=== PATIENT | male | born 1955 | race Caucasian/White ===

== ENCOUNTER 2022-10-14 18:37 | Observation (INO) | payer OTHER ==
[~2022-10-14] VITALS: Ht 177.8 cm; Wt 136.0 kg
[~2022-10-14 18:37] MED LIST: ASPI-325 PO; ATOR20TA50 PO; AZIT250T8 PO; CLOP75TA70 PO; HYDR-4902 PO
[2022-10-14] MEDS ORDERED: FUROSEMIDE 40 MG/4 ML VIAL IV ONE (19:15)
[2022-10-14 19:21] LABS: Basophils # (auto) 0.1 10 ^3/uL (0-0.2); Basophils % (auto) 0.5 % (0.0-2.0); Eosinophils # (auto) 0.4 10 ^3/uL (0-0.8); Eosinophils % (auto) 2.8 % (0.0-7.0); Hematocrit 38.8 % (41.0-53.0); Hemoglobin 13.4 g/dL (13.5-17.5); Lymphocytes # (auto) 2.7 10 ^3/uL (0.4-5.4); Lymphocytes % (auto) 20.9 % (10.0-50.0); Mean Corpuscular Hemoglobin 32.9 pg (28.0-32.0); Mean Corpuscular Hgb Conc. 34.6 g/dL (32.0-36.0); Mean Corpuscular Volume 95.2 fL (80.0-100.0); Monocytes # (auto) 1.1 10 ^3/uL (0-1.3); Monocytes % (auto) 8.9 % (0.0-12.0); Neutrophils # (auto) 8.5 10 ^3/uL (1.6-8.6); Neutrophils % (auto) 66.9 % (37.0-80.0); Nucleated Red Blood Cells % 0.1 %; Red Blood Cells 4.08 10^6/uL (4.5-5.90); Red Cell Distribution Width 13.6 % (11.8-14.3); White Blood Cell 12.7 10^3/uL (4.4-10.8)
[2022-10-14 19:55] LABS: Albumin 3.4 g/dL (3.4-5.0); Calcium 9.7 mg/dL (8.5-10.1); Potassium 3.6 mmol/L (3.5-5.1)
[2022-10-14 20:01] LABS: BUN/Creatinine Ratio 12.9 (10.0-20.0); Bilirubin, Total 0.5 mg/dL (0.2-1.0)
[2022-10-14] MEDS ORDERED: HYDROcodone-ACET 10/325MG TAB PO ONE (20:15)
[2022-10-14] MEDS ORDERED: NITROGLYCERIN 0.4 MG SL TAB SL ONE ×2 (20:41→20:45)
[2022-10-14 20:45] LABS: INR 0.95 (0.9-1.15); Partial Thromboplastin Time 30.2 sec (24.6-33.4)
[2022-10-14] MEDS ORDERED: NITROGLYCERIN 0.4 MG SL TAB SL PRN (21:30)
[2022-10-14 21:38] LABS: Urine Bacteria NONE SEEN /hpf (None Seen); Urine Blood Negative /uL (Negative); Urine Specific Gravity 1.011 (1.001-1.035); Urine WBC <1 /hpf (0 - 3)
[2022-10-15] MEDS ORDERED: NITROGLYCERIN 0.4 MG SL TAB SL PRN
[2022-10-15] MEDS ORDERED: MORPHINE SULFATE INJ 2 MG/ml SYRG IV PRN
[2022-10-15] MEDS ORDERED: DEXTROSE (50%) 50ML SYRG IV PRN
[2022-10-15] MEDS: HYDROcodone-ACET 10/325MG TAB PO PRN ×2 (00:12→05:15)
[2022-10-15] MEDS ORDERED: FUROSEMIDE 40 MG/4 ML VIAL IV SCH (06:00)
[2022-10-15 06:34] LABS: Albumin 3.2 g/dL (3.4-5.0); Calcium 9.9 mg/dL (8.5-10.1); Potassium 3.8 mmol/L (3.5-5.1)
[2022-10-15 06:37] LABS: Bilirubin, Total 0.6 mg/dL (0.2-1.0); Total Protein 7.1 g/dL (6.4-8.2)
[2022-10-15] MEDS ORDERED: ACCU-CHEK COMFORT CURVE STRIP VI SCH (07:00)
[2022-10-15] MEDS ORDERED: InsuLIN REG 1unit/0.01ml Soln (100units/ml) SC SCH ×2 (07:00→22:00)
[2022-10-15 08:01] VITALS: BP 124/69
== END 2022-10-15 09:58 | disposition home or self-care (01) ==
LOC: ER 18:37 → EDBD 18:37 → TELE 23:57 → INTOOBSV 23:57
PROVIDERS: ADMIT Internal Medicine; ATTEND Internal Medicine
DX: R07.89 Other chest pain (principal); I13.0 Hypertensive heart and chronic kidney disease with heart failure and stage 1 through stage 4 chronic kidney disease, or unspecified chronic kidney disease; I50.9 Heart failure, unspecified; N18.9 Chronic kidney disease, unspecified; E11.22 Type 2 diabetes mellitus with diabetic chronic kidney disease; I25.10 Atherosclerotic heart disease of native coronary artery without angina pectoris; E66.01 Morbid (severe) obesity due to excess calories; E78.5 Hyperlipidemia, unspecified; I24.9 Acute ischemic heart disease, unspecified; I25.2 Old myocardial infarction; N17.9 Acute kidney failure, unspecified; F17.210 Nicotine dependence, cigarettes, uncomplicated; J44.9 Chronic obstructive pulmonary disease, unspecified; Z79.84 Long term (current) use of oral hypoglycemic drugs; Z86.73 Personal history of transient ischemic attack (TIA), and cerebral infarction without residual deficits; Z95.5 Presence of coronary angioplasty implant and graft; Z79.82 Long term (current) use of aspirin; Z68.41 Body mass index [BMI] 40.0-44.9, adult
CPT/HCPCS: 36415; 71045; 76705; 80053; 81001; 83735; 83880; 84484; 85025; 85610; 85730; 93005; 93971; 96374; 96376; 99285; G0378; J1940

== ENCOUNTER 2022-12-26 22:25 | Emergency (ER) | payer OTHER ==
[~2022-12-26] VITALS: Ht 170.2 cm; Wt 136.4 kg
[~2022-12-26 22:25] MED LIST changes: +AZIT-81 PO; -AZIT250T8 PO
[2022-12-27] MEDS ORDERED: LACTULOSE 20Gm/30ML SOLN PO ONE (00:15)
[2022-12-27] MEDS ORDERED: FLEET ENEMA(ADULT) 135 ML PR ONE ×2 (00:15→01:30)
[2022-12-27 00:50] LABS: Basophils # (auto) 0.1 10 ^3/uL (0-0.2); Basophils % (auto) 0.8 % (0.0-2.0); Eosinophils # (auto) 0.3 10 ^3/uL (0-0.8); Eosinophils % (auto) 2.3 % (0.0-7.0); Hemoglobin 14.9 g/dL (13.5-17.5); Lymphocytes # (auto) 3.7 10 ^3/uL (0.4-5.4); Lymphocytes % (auto) 27.9 % (10.0-50.0); Mean Corpuscular Hemoglobin 32.2 pg (28.0-32.0); Mean Corpuscular Hgb Conc. 34.6 g/dL (32.0-36.0); Monocytes # (auto) 1.5 10 ^3/uL (0-1.3); Monocytes % (auto) 11.5 % (0.0-12.0); Neutrophils # (auto) 7.6 10 ^3/uL (1.6-8.6); Neutrophils % (auto) 57.5 % (37.0-80.0); Red Blood Cells 4.63 10^6/uL (4.5-5.90); Red Cell Distribution Width 13.4 % (11.8-14.3); White Blood Cell 13.2 10^3/uL (4.4-10.8)
[2022-12-27 00:57] LABS: Albumin 3.7 g/dL (3.4-5.0); BUN/Creatinine Ratio 15.7 (10.0-20.0); Calcium 9.7 mg/dL (8.5-10.1)
[2022-12-27 01:00] LABS: Bilirubin, Total 0.3 mg/dL (0.2-1.0); Total Protein 8.1 g/dL (6.4-8.2)
[2022-12-27 01:24] LABS: Potassium 2.8 mmol/L (3.5-5.1)
[2022-12-27] MEDS ORDERED: POTASSIUM EFFERVESENT TAB 25 MEQ PO ONE ×2 (02:15→10:00)
[2022-12-27] MEDS ORDERED: SODIUM CHLORIDE 0.9% 1,000 ML IV ONE ×2 (02:15→02:45)
[2022-12-27] MEDS ORDERED: DOCU-94 PO (02:27)
[2022-12-27] MEDS ORDERED: LACT10SO3 PO (02:27)
[2022-12-27] MEDS: POTASSIUM CHL 20MEQ/100ML 100 ML IV SCH ×2 (05:03→06:58)
[2022-12-27 05:10] VITALS: PULSE 68; RESP 22; O2SAT 93
[2022-12-27 07:13] LABS: Albumin 3.5 g/dL (3.4-5.0); Calcium 9.4 mg/dL (8.5-10.1)
[2022-12-27 07:17] LABS: BUN/Creatinine Ratio 15.2 (10.0-20.0); Bilirubin, Total 0.5 mg/dL (0.2-1.0); Total Protein 8.2 g/dL (6.4-8.2)
[2022-12-27 09:25] VITALS: PULSE 70; RESP 20; O2SAT 95
[2022-12-27 10:10] VITALS: BP 141/74; PULSE 72; RESP 16; TEMP 97.8; O2SAT 97
== END 2022-12-27 10:53 | disposition home or self-care (01) ==
LOC: ER 22:25
DX: K59.00 Constipation, unspecified (principal); E87.6 Hypokalemia; D72.829 Elevated white blood cell count, unspecified; F17.210 Nicotine dependence, cigarettes, uncomplicated; I11.0 Hypertensive heart disease with heart failure; I50.9 Heart failure, unspecified; J44.9 Chronic obstructive pulmonary disease, unspecified; E78.5 Hyperlipidemia, unspecified; I25.2 Old myocardial infarction; E66.01 Morbid (severe) obesity due to excess calories; Z86.73 Personal history of transient ischemic attack (TIA), and cerebral infarction without residual deficits; Z68.41 Body mass index [BMI] 40.0-44.9, adult
CPT/HCPCS: 36415; 74176; 80053; 83690; 85025; 96361; 96365; 96366; 99285; J3480; J7030

== ENCOUNTER 2023-08-25 04:16 | Emergency (ER) | payer OTHER ==
[~2023-08-25] VITALS: Ht 170.2 cm; Wt 132.7 kg
[~2023-08-25 04:16] MED LIST changes: +AZIT-185 PO; -AZIT-81 PO; +DOCU-94 PO; +LACT10SO3 PO
[2023-08-25 04:25] VITALS: BP 149/95; RESP 24; O2SAT 95
[2023-08-25 04:31] VITALS: PULSE 67
[2023-08-25 06:04] LABS: Basophils # (auto) 0 10 ^3/uL (0-0.2); Basophils % (auto) 0.2 % (0.0-2.0); Eosinophils # (auto) 0.3 10 ^3/uL (0-0.8); Eosinophils % (auto) 2.8 % (0.0-7.0); Hematocrit 38.8 % (41.0-53.0); Hemoglobin 13.2 g/dL (13.5-17.5); Lymphocytes # (auto) 1.7 10 ^3/uL (0.4-5.4); Lymphocytes % (auto) 17.4 % (10.0-50.0); Mean Corpuscular Hemoglobin 32.8 pg (28.0-32.0); Mean Corpuscular Hgb Conc. 33.9 g/dL (32.0-36.0); Mean Corpuscular Volume 96.7 fL (80.0-100.0); Monocytes # (auto) 1.2 10 ^3/uL (0-1.3); Neutrophils # (auto) 6.7 10 ^3/uL (1.6-8.6); Neutrophils % (auto) 67.6 % (37.0-80.0); Nucleated Red Blood Cells % 0.1 %; Red Blood Cells 4.02 10^6/uL (4.5-5.90); Red Cell Distribution Width 13.7 % (11.8-14.3)
[2023-08-25 06:30] LABS: Alanine Aminotransferase 26 U/L (7-40); Albumin 3.8 g/dL (3.2-4.8); Alkaline Phosphatase 74 U/L (46-116); Anion Gap 5 (5-15); Aspartate Aminotransferase 24 U/L (13-40); BUN/Creatinine Ratio 11.7 (10.0-20.0); Bilirubin, Total 0.3 mg/dL (0.2-1.0); Blood Urea Nitrogen 16 mg/dL (9-23); Calcium 9.3 mg/dL (8.5-10.1); Carbon Dioxide 26 mmol/L (20-30); Chloride 106 mmol/L (98-107); Glucose 105 mg/dL (74-106); Potassium 4.2 mmol/L (3.5-5.1); Sodium 137 mmol/L (136-145); Total Protein 6.2 g/dL (5.7-8.2)
== END 2023-08-25 06:48 | disposition left against medical advice (07) ==
LOC: ER 04:16
DX: R06.02 Shortness of breath (principal); Z53.21 Procedure and treatment not carried out due to patient leaving prior to being seen by health care provider
CPT/HCPCS: 36415; 71045; 80053; 83880; 84484; 85025; 93005

== ENCOUNTER 2023-10-31 22:26 | Emergency (ER) | payer OTHER ==
[~2023-10-31] VITALS: Ht 170.2 cm; Wt 128.6 kg
[2023-10-31 23:03] LABS: Basophils # (auto) 0.2 10 ^3/uL (0-0.2); Eosinophils # (auto) 0.3 10 ^3/uL (0-0.8); Eosinophils % (auto) 1.6 % (0.0-7.0); Hematocrit 43.9 % (41.0-53.0); Lymphocytes # (auto) 2.3 10 ^3/uL (0.4-5.4); Lymphocytes % (auto) 14.2 % (10.0-50.0); Mean Corpuscular Hemoglobin 32.5 pg (28.0-32.0); Mean Corpuscular Hgb Conc. 34.3 g/dL (32.0-36.0); Mean Corpuscular Volume 94.9 fL (80.0-100.0); Monocytes # (auto) 1.6 10 ^3/uL (0-1.3); Monocytes % (auto) 9.8 % (0.0-12.0); Neutrophils # (auto) 11.7 10 ^3/uL (1.6-8.6); Neutrophils % (auto) 73.4 % (37.0-80.0); Nucleated Red Blood Cells % 0.1 %; Red Blood Cells 4.63 10^6/uL (4.5-5.90); Red Cell Distribution Width 13.3 % (11.8-14.3); White Blood Cell 15.9 10^3/uL (4.4-10.8)
[2023-10-31 23:18] LABS: Alanine Aminotransferase 33 U/L (7-40); Albumin 4.5 g/dL (3.2-4.8); Alkaline Phosphatase 80 U/L (46-116); Anion Gap 6 (5-15); Aspartate Aminotransferase 26 U/L (13-40); BUN/Creatinine Ratio 10.7 (10.0-20.0); Blood Urea Nitrogen 24 mg/dL (9-23); Calcium 10.7 mg/dL (8.7-10.4); Carbon Dioxide 29 mmol/L (20-30); Chloride 103 mmol/L (98-107); Glucose 131 mg/dL (74-106); Potassium 3.3 mmol/L (3.5-5.1); Sodium 138 mmol/L (136-145)
[2023-10-31 23:19] LABS: Bilirubin, Total 0.3 mg/dL (0.2-1.0); Total Protein 7.7 g/dL (5.7-8.2)
[2023-11-01 04:54] VITALS: BP 139/79; PULSE 100; RESP 20; TEMP 98; O2SAT 94
[2023-11-01] MEDS: LABETALOL HCL 200 MG TAB PO ONE (05:28)
[2023-11-01] MEDS: NITROGLYCERIN 0.4 MG SL TAB SL ONE (05:28)
[2023-11-01] MEDS: cefTRIAXone 1GM/50ML D5W 50 ML IV ONE (05:29)
== END 2023-11-01 05:32 | disposition home or self-care (01) ==
LOC: ER 22:26
DX: S37.099A Other injury of unspecified kidney, initial encounter (principal); I24.9 Acute ischemic heart disease, unspecified; E87.6 Hypokalemia; F17.210 Nicotine dependence, cigarettes, uncomplicated; I11.0 Hypertensive heart disease with heart failure; I50.9 Heart failure, unspecified; I25.10 Atherosclerotic heart disease of native coronary artery without angina pectoris; J44.9 Chronic obstructive pulmonary disease, unspecified; E11.9 Type 2 diabetes mellitus without complications; E78.5 Hyperlipidemia, unspecified; Z86.73 Personal history of transient ischemic attack (TIA), and cerebral infarction without residual deficits; Z79.899 Other long term (current) drug therapy; X58.XXXA Exposure to other specified factors, initial encounter; Y93.89 Activity, other specified; Y92.89 Other specified places as the place of occurrence of the external cause; Y99.8 Other external cause status
CPT/HCPCS: 36415; 71045; 80053; 83880; 84484; 85025; 85379; 93005

== ENCOUNTER 2023-12-18 20:39 | Observation (INO) | payer OTHER ==
[~2023-12-18] VITALS: Ht 172.7 cm; Wt 130.0 kg
[2023-12-18 21:00] LABS: Basophils # (auto) 0.1 10 ^3/uL (0-0.2); Basophils % (auto) 0.6 % (0.0-2.0); Eosinophils # (auto) 0.2 10 ^3/uL (0-0.8); Eosinophils % (auto) 1.5 % (0.0-7.0); Lymphocytes # (auto) 3.7 10 ^3/uL (0.4-5.4); Lymphocytes % (auto) 22.6 % (10.0-50.0); Mean Corpuscular Hemoglobin 33.4 pg (28.0-32.0); Mean Corpuscular Volume 92.7 fL (80.0-100.0); Monocytes # (auto) 1.6 10 ^3/uL (0-1.3); Neutrophils # (auto) 10.6 10 ^3/uL (1.6-8.6); Neutrophils % (auto) 65.3 % (37.0-80.0); Red Blood Cells 3.88 10^6/uL (4.5-5.90); Red Cell Distribution Width 12.9 % (11.8-14.3); White Blood Cell 16.2 10^3/uL (4.4-10.8)
[2023-12-18 21:19] LABS: Alanine Aminotransferase 25 U/L (7-40); Albumin 4.1 g/dL (3.2-4.8); Alkaline Phosphatase 93 U/L (46-116); Anion Gap 10 (5-15); Aspartate Aminotransferase 20 U/L (13-40); BUN/Creatinine Ratio 14.3 (10.0-20.0); Bilirubin, Total 0.3 mg/dL (0.2-1.0); Blood Urea Nitrogen 36 mg/dL (9-23); Carbon Dioxide 27 mmol/L (20-30); Chloride 97 mmol/L (98-107); Glucose 203 mg/dL (74-106); Potassium 2.6 mmol/L (3.5-5.1); Sodium 134 mmol/L (136-145)
[2023-12-18 22:00] VITALS: PULSE 96; RESP 20; O2SAT 96
[2023-12-18 22:27] LABS: Lipase 75 U/L (12-53)
[2023-12-18] MEDS: SODIUM CHLORIDE 0.9% 1,000 ML IV ONE (22:45)
[2023-12-18] MEDS: ONDANSETRON HCL 4 MG/2 ML VIAL IV ONE (23:11)
[2023-12-18] MEDS ORDERED: SODIUM CHLORIDE 0.9% 1,000 ML IV ONE (23:30)
[2023-12-18 23:54] LABS: Urine Bacteria None Seen /hpf (None Seen)
[2023-12-18 23:58] LABS: Urine Blood Negative /uL (Negative); Urine Clarity Clear (Clear); Urine Color Light-Yellow (Yellow); Urine Protein, UAD 2+ (Negative); Urine Specific Gravity 1.014 (1.001-1.035); Urine Urobilinogen Normal (Negative); Urine WBC 1 /hpf (0 - 3); Urine pH 5.5 (5.0-9.0)
[2023-12-19] MEDS: POTASSIUM EFFERVESENT TAB 25 MEQ PO ONE (01:06)
[2023-12-19] MEDS: cefTRIAXone 1GM/50ML D5W 50 ML IV ONE (01:06)
[2023-12-19] MEDS: POTASSIUM CHL 20MEQ/100ML 100 ML IV SCH (01:23)
[2023-12-19] MEDS: MAGNESIUM SULFATE 1GM/100ML 100 ML IV ONE ×2 (02:15→03:18)
[2023-12-19] MEDS: SODIUM CHLORIDE 0.9% 1,000 ML IV ONE (02:15)
[2023-12-19] MEDS ORDERED: NITROGLYCERIN 0.4 MG SL TAB SL PRN (02:30)
[2023-12-19] MEDS ORDERED: DEXTROSE (50%) 50ML SYRG IV PRN (02:30)
[2023-12-19] MEDS ORDERED: MORPHINE SULFATE INJ 2 MG/ml SYRG IV PRN ×2 (02:30)
[2023-12-19] MEDS ORDERED: hydrALAZINE HCL 20 MG/ML VL IV PRN (02:30)
[2023-12-19] MEDS ORDERED: ONDANSETRON HCL 4 MG/2 ML VIAL IV PRN (02:30)
[2023-12-19 05:58] VITALS: PULSE 86; RESP 17; O2SAT 93
[2023-12-19 06:10] VITALS: BP 115/62; PULSE 86; RESP 17; TEMP 98.1; O2SAT 93
[2023-12-19 06:12] LABS: Basophils # (auto) 0.1 10 ^3/uL (0-0.2); Basophils % (auto) 0.6 % (0.0-2.0); Eosinophils # (auto) 0.2 10 ^3/uL (0-0.8); Eosinophils % (auto) 1.9 % (0.0-7.0); Hematocrit 34.6 % (41.0-53.0); Hemoglobin 12.1 g/dL (13.5-17.5); Lymphocytes # (auto) 2.9 10 ^3/uL (0.4-5.4); Lymphocytes % (auto) 23.1 % (10.0-50.0); Mean Corpuscular Hemoglobin 32.5 pg (28.0-32.0); Mean Corpuscular Hgb Conc. 34.9 g/dL (32.0-36.0); Mean Corpuscular Volume 93.3 fL (80.0-100.0); Monocytes # (auto) 1.1 10 ^3/uL (0-1.3); Monocytes % (auto) 9.1 % (0.0-12.0); Neutrophils # (auto) 8.2 10 ^3/uL (1.6-8.6); Neutrophils % (auto) 65.3 % (37.0-80.0); Nucleated Red Blood Cells % 0.1 %; Red Blood Cells 3.71 10^6/uL (4.5-5.90); Red Cell Distribution Width 12.8 % (11.8-14.3); White Blood Cell 12.6 10^3/uL (4.4-10.8)
[2023-12-19] MEDS: ACCU-CHEK COMFORT CURVE STRIP VI SCH (06:59)
[2023-12-19] MEDS: InsuLIN REG 1unit/0.01ml Soln (100units/ml) SC SCH (06:59)
[2023-12-19 07:22] LABS: Chloride 101 mmol/L (98-107); Potassium 3.2 mmol/L (3.5-5.1); Sodium 136 mmol/L (136-145)
[2023-12-19 07:23] LABS: Anion Gap 8 (5-15); Carbon Dioxide 27 mmol/L (20-30)
[2023-12-19 07:24] LABS: Calcium 9.7 mg/dL (8.7-10.4)
[2023-12-19 07:28] LABS: Glucose 163 mg/dL (74-106)
[2023-12-19 07:29] LABS: BUN/Creatinine Ratio 14.9 (10.0-20.0); Blood Urea Nitrogen 33 mg/dL (9-23)
[2023-12-19] MEDS ORDERED: LEVO500T91 PO ×2 (07:42→11:21)
[2023-12-19 08:00] VITALS: BP 139/76; PULSE 69; PULSE 88; RESP 20; TEMP 98.6; O2SAT 95
[2023-12-19] MEDS ORDERED: PIPERACILLIN-TAZOB 3.375GM 100 ML IV SCH ×3 (08:00→14:00)
[2023-12-19 08:57] VITALS: BP 139/76; PULSE 69; RESP 20; TEMP 98.6; O2SAT 95
[2023-12-19] MEDS: POTASSIUM CHL 20 Meq TABLET PO ONE (09:11)
[2023-12-19] MEDS: PIPERACILLIN-TAZOB 3.375GM 100 ML IV ONE (09:12)
[2023-12-19] MEDS: CLOPIDOGREL BISULFATE 75 MG TAB PO SCH (09:12)
[2023-12-19] MEDS: ASPirin-EC 81 mg tab PO SCH (09:12)
[2023-12-19] MEDS ORDERED: ENOXAPARIN SOD 40 MG/0.4 ML SYRINGE SC SCH (10:00)
[2023-12-19] MEDS ORDERED: HEPARIN SODIUM (PORCINE) 5000 UNITS/ML 1ML VIAL SC SCH (10:00)
[2023-12-19 12:00] VITALS: BP 127/65; PULSE 77; RESP 18; TEMP 98.2; O2SAT 93
[2023-12-19] MEDS ORDERED: ATORVASTATIN 20 MG TAB PO SCH (22:00)
[2023-12-19] MEDS ORDERED: InsuLIN REG 1unit/0.01ml Soln (100units/ml) SC SCH (22:00)
== END 2023-12-19 13:30 | disposition home or self-care (01) ==
LOC: EDSEX 20:39 → ER 20:39 → EDBD 20:39 → TELE 12-19 02:34 → TELE-EAST 12-19 06:07
PROVIDERS: ADMIT Hospitalist; ATTEND Hospitalist
DX: R07.89 Other chest pain (principal); D72.829 Elevated white blood cell count, unspecified; R53.1 Weakness; J96.10 Chronic respiratory failure, unspecified whether with hypoxia or hypercapnia; R00.2 Palpitations; R42 Dizziness and giddiness; E87.6 Hypokalemia; E78.5 Hyperlipidemia, unspecified; E11.9 Type 2 diabetes mellitus without complications; I11.0 Hypertensive heart disease with heart failure; I50.9 Heart failure, unspecified; I25.10 Atherosclerotic heart disease of native coronary artery without angina pectoris; I95.1 Orthostatic hypotension; R11.0 Nausea; J44.9 Chronic obstructive pulmonary disease, unspecified; F17.210 Nicotine dependence, cigarettes, uncomplicated; Z79.02 Long term (current) use of antithrombotics/antiplatelets; Z86.73 Personal history of transient ischemic attack (TIA), and cerebral infarction without residual deficits; Z95.5 Presence of coronary angioplasty implant and graft
CPT/HCPCS: 36415; 71045; 80048; 80053; 81001; 82962; 83690; 83735; 83880; 84484; 85025; 93005; 96361; 96365; 96366; 96367; 96368; 96372; 96375; 99285; G0378; J0696; J1815; J2405; J2543; J3475; J3480